=== PATIENT | female | born 1950 | race Caucasian/White ===

== ENCOUNTER 2016-11-18 08:01 | Outpatient (CLI) | payer BC ==
--- NOTE | 2016-11-18 09:05 | RAD ---
LUMBAR SPINE 3 VIEWS: Date: 11/18/16 HISTORY: Low back pain. FINDINGS: Degenerative changes are present with levoscoliosis of the lumbar spine. No fracture, subluxation, o r bony destruction is identified. IMPRESSION: Lumbar spondylosis with mild levoscoliosis. POS: RADHA
== END 2016-11-18 08:02 | disposition home or self-care (01) ==
LOC: RAD-FRANK 08:01
PROVIDERS: ATTEND Nurse Practitioner Family
DX: M54.5 Low back pain (principal); M47.816 Spondylosis without myelopathy or radiculopathy, lumbar region; M41.9 Scoliosis, unspecified
CPT/HCPCS: 72100

== ENCOUNTER 2017-02-10 13:00 | Outpatient (CLI) | payer MEDICARE ==
--- NOTE | 2017-02-10 13:39 | RAD ---
THREE VIEWS LUMBAR SPINE: Date: 02-10-17 Comparison: 11-18-16 History: Low back pain with pain radiating down the left lower extremity for six months, lumbar spina l stenosis. FINDINGS: Lateral neutral, flexion, and extension imaging is provided. There is no significant anterolisthesis or retrolisthesis noted. There is lower lumbar spine facet hy pertrophy, most prominent at L4-5. There is mild multilevel disc space narrowing and mild anterior os teophyte formation. No acute osseous abnormality. IMPRESSION: No anterolisthesis or retrolisthesis noted on neutral, flexion, or extension lateral views. POS: RADHA
== END 2017-02-10 13:01 | disposition home or self-care (01) ==
LOC: TBSIIMAG 13:00
PROVIDERS: ATTEND Neurological Surgery
DX: M48.061 Spinal stenosis, lumbar region without neurogenic claudication (principal)
CPT/HCPCS: 72100

== ENCOUNTER 2017-03-02 10:00 | Outpatient (CLI) | payer MEDICARE ==
[2017-03-02 11:00] LABS: PTT 27.7 SEC (22.9-36.1)
== END 2017-03-02 10:01 | disposition home or self-care (01) ==
LOC: LABBT 10:00
PROVIDERS: ATTEND Neurological Surgery
DX: Z01.812 Encounter for preprocedural laboratory examination (principal); M51.26 Other intervertebral disc displacement, lumbar region; M48.061 Spinal stenosis, lumbar region without neurogenic claudication
CPT/HCPCS: 85610; 85730

== ENCOUNTER 2017-03-07 05:28 | Day surgery (SDC) | payer MEDICARE ==
[2017-03-02 10:09] VITALS: BMI 29.1
--- NOTE | 2017-03-02 15:35 | HP ---
HISTORY OF PRESENT ILLNESS: Ms. Reeves is a 67-year-old female that presents with low back pain in th e left greater than the right and left-sided numbness, pain and tingling in the buttocks and left S1 dermatome. She has had this pain for about 6 months and has gotten worsen over short time. The pain is made worse with sitting and leaning to the left and walking. The pain is made somewhat better wi th analgesics. She has not had any NANNETTE injections of the lumbar spine and has not had PT. She denie s any bowel or bladder incontinence and has good strength in the lower extremities on exam. IMAGING: MRI on CD at [facility]. X-rays at [facility]. REVIEW OF SYSTEMS: Ten-point review of systems negative unless stated otherwise in the above HPI. PAST MEDICAL HISTORY: No medical history. PAST SURGICAL HISTORY: Tubal ligation at 32. HOSPITALIZATIONS: Childbirth at 31. FAMILY HISTORY: Father is , diagnosed with hypertension. Mother is , diagnosed with strokes. SOCIAL HISTORY: The patient is a nonsmoker. She is and has 1 child. MEDICATIONS: 1. Fluoxetine HCL 20 mg capsule 1 capsule in the morning orally once a day. 2. Lisinopril 40 mg tablet 1 tablet orally once a day. 3. Atenolol 25 mg tablet 1 tablet orally once a day. 4. Omeprazole 20 mg capsule delayed release 1 capsule orally once a day. 5. Ropinirole HCL 5 mg tablet 1 tablet orally 3 times a day. 5. Gabapentin 100 mg capsule 1 capsule orally 3 times a day. ALLERGIES: No known drug allergies. PHYSICAL EXAMINATION: HEENT: Head is normocephalic, atraumatic. Hearing intact. Moist mucous membranes. Trachea is midl ine. Eyes: Pupils are equal and reactive to light. Extraocular muscles are intact. Sclerae is whi te, nonicteric. PSYCHIATRIC: Normal mood and affect. CARDIOVASCULAR/CARDIOPULMONARY: No cyanosis or clubbing noted. Intact pedal pulses bilaterally. MUSCULOSKELETAL: Lower extremities, 5/5 strength in bilateral iliopsoas, quadriceps, hamstrings, rig ht tibialis anterior, extensor hallucis longus. Sensory deficits in the left S1 dermatome, nontender to palpation in the midline lumbar spine. RESPIRATORY: The patient has bilateral symmetric chest rise, appears to have no shortness of breath, clear sounds with no wheezing or crackles. NEUROLOGIC: Cranial nerves II through XII are grossly intact. Speech is fluent. She answers my que stions appropriately. She has normal gait and station. ASSESSMENT: Radiculopathy in the lumbar sacral region. PLAN: Dr. Marrero offered to decompress the lumbar spinal stenosis that is causing her leg pain an d the left leg weakness. We discussed the risks, benefits, and possible complications of surgery. S he is fully aware of the risk and is willing to proceed with the surgery. The surgery will be an L4- L5 laminectomy and a left L5-S1 microdiskectomy.
[2017-03-07] MEDS ORDERED: CEFAZOLIN/Water 2 GM/20 ML SYRINGE ONE (05:59)
[2017-03-07] MEDS ORDERED: Thrombin 5000 UNITS/5 ML VIAL ONE (06:18)
[2017-03-07] MEDS ORDERED: Sodium Chloride 0.9% 10 ML ONE (06:18)
[2017-03-07] MEDS ORDERED: Midazolam HCl 2 mg/2 ml Vial ONE (06:49)
[2017-03-07] MEDS ORDERED: Fentanyl 100 MCG/2 ML VIAL ONE ×3 (06:58→09:53)
[2017-03-07 07:09] LABS: Potassium 3.9 mmol/L (3.5-5.1)
[2017-03-07] MEDS ORDERED: Bupivacaine PF 0.5% 30 ML VIAL ONE (07:50)
[2017-03-07] MEDS ORDERED: Phenylephrine 10 MG/NS 250 ML 250 ML ONE (08:34)
[2017-03-07] MEDS ORDERED: HYDROcodone/Acetaminophen 5/325 mg Tablet ONE ×2 (11:09)
--- NOTE | 2017-03-07 11:16 | OP ---
DATE OF PROCEDURE: 03/07/2017 SURGEON: Melva Marrero M.D. VEGETABLE HANDLER: Tom Johnson PA-C. PREOPERATIVE INDICATION: Treat pain, prevent neurological deterioration. PREOPERATIVE DIAGNOSES: L4-5 lateral recess stenosis with neurogenic claudication, left L5-S1 interv ertebral disk herniation with S1 radiculopathy. POSTOPERATIVE DIAGNOSIS: L4-L5 lateral recess stenosis with neurogenic claudication, left L5-S1 inte rvertebral disk herniation with S1 radiculopathy. OPERATIVE PROCEDURE: Decompressive laminectomy, medial facetectomy, foraminotomy L4-5, left L5-S1 pa rtial hemilaminectomy, medial facetectomy, and microdiskectomy, operating microscope. PREOPERATIVE MEDICATIONS: Ancef 2 grams IV. DRAIN NUMBER: Zero. DRAIN TYPE: None. OPERATIVE DICTATION: The patient was brought to the operating room. General endotracheal anesthesia was induced. The patient was positioned prone on the operating table with her chest and hips suppor ponce by gel-filled chest rolls. A lateral fluoro radiograph was used to plan our incision. The lumba r skin was sterilely prepped and draped. We opened with a 10 blade knife and controlled bleeding wit h bipolar and monopolar cautery. We used monopolar cautery to dissect through the subcutaneous tissu es to the thoracodorsal fascia. We incised the fascia in the midline and reflected the paraspinal mu scles off the spinous process and lamina of L4, L5, and the top of the sacrum. We placed a self-lurdes ining retractor and a lateral fluoro radiograph was used to confirm the levels upon which we were ope rating. With an Adson rongeur, we removed the spinous process of L4 and the superior portion of L5. We thinned the lamina of L4 and the left side of the lamina at L5. Using a Kerrison rongeur, we fas hioned a laminectomy at L4 and the top of L5 and a partial hemilaminectomy at L5-S1. The operative m icroscope was brought into the field. Under microscopic magnification and using microsurgical techniques, we removed the yellow ligament in a piecemeal fashion at L4-5, we undermined the lateral recesses and remove ventral osteophytes from the facet joints and removed yellow ligament as well. We identified the traversing and exiting L5 ne rve roots. We performed foraminotomies over these nerve roots until a ball probe could pass through the lateral recess and out the foramen without impingement. We turned our microscopes attention to L 5-S1 on the left. Here we completed a partial hemilaminectomy, medial facetectomy with Kerrisons. W e removed the yellow ligament in piecemeal fashion. The L5 nerve root was severely stretched over a calcified disk protrusion. We gently mobilized the nerve root medially and incised the lateral aspec t of the disk, removing disk contents. We still could not free the nerve and therefore we worked in the axilla of the nerve root and removed disk material there as well. That maneuver was quite fruitf ul and then we could mobilize the nerve root medially. We controlled bleeding in the ventral epidura l space with gentle bipolar cautery. We removed more disk fragments until the nerve root was no long er under any stretch whatsoever. We irrigated copiously with bacitracin irrigation. We infused loca l anesthetic in the paraspinal muscles. We closed the wound in anatomic layers. We applied a steril e dressing. This was a clean case and no contamination.
[2017-03-07] MEDS ORDERED: Lidocaine 1% PF 5 ML VIAL ONE (12:26)
[2017-03-07] MEDS ORDERED: Ondansetron HCl/PF 4 MG/2 ML Vial ONE (12:26)
[2017-03-07] MEDS ORDERED: PHENYLEPHRINE-NS 100 MCG/ML 10 ML SYRINGE ONE (12:26)
[2017-03-07] MEDS ORDERED: Propofol 200 MG/20 ML VIAL ONE (12:26)
[2017-03-07] MEDS ORDERED: Glycopyrrolate 0.2 MG/ML 5 ML SYRINGE ONE (12:26)
== END 2017-03-07 12:34 | disposition home or self-care (01) ==
LOC: SDC 05:28
PROVIDERS: ATTEND Neurological Surgery
PROC: 01NB0ZZ Release Lumbar Nerve, Open Approach (ICD-10-PCS; principal; 2017-03-07)
PROC: 0ST20ZZ Resection of Lumbar Vertebral Disc, Open Approach (ICD-10-PCS; 2017-03-07)
DX: M48.062 Spinal stenosis, lumbar region with neurogenic claudication (principal); M51.17 Intervertebral disc disorders with radiculopathy, lumbosacral region; M25.78 Osteophyte, vertebrae; Z79.51 Long term (current) use of inhaled steroids; Z79.899 Other long term (current) drug therapy; Z98.51 Tubal ligation status
CPT/HCPCS: 36415; 76001; 84132; 96374; A4216; J2001; J2250; J2405; J2704; J3010; J3370; J3490; S0020

== ENCOUNTER 2017-10-24 12:43 | Outpatient (CLI) | payer MEDICARE ==
--- NOTE | 2017-10-24 17:03 | ULT ---
BILATERAL LOWER EXTREMITY VENOUS DOPPLER WITH SPECTRAL ANALYSIS AND COLOR FLOW EVALUATION: Date: 10/24/17 HISTORY: Bilateral lower extremity pain. TECHNIQUE: Lee scale, color flow, Doppler evaluation, and spectral analysis of the bilateral lower extremity ve nous structures is performed with 2D imaging. The bilateral lower extremity common femoral, superfici al femoral, popliteal, posterior tibial, most proximal greater saphenous, and profunda femoral veins are imaged. FINDINGS: There is normal lumen compressibility, flow, and augmentation in the visualized deep venous structure s of the bilateral lower extremities. IMPRESSION: No evidence of a deep venous thrombosis involving the visualized deep venous structures of bilateral lower extremities. POS: VERO
--- NOTE | 2017-10-28 09:50 | ULT ---
ARTERIAL ULTRASOUND: Date: 10/24/17 Bilateral lower extremity arterial ultrasound was performed. On the right, common femoral and popliteal artery waveforms are triphasic with good peak area under t he waveform. Dorsalis pedis and posterior tibial artery waveforms are triphasic with some diminution of the peak wave. Ankle brachial index is 1.29 on the right. On the left, femoral, popliteal, dorsalis pedis, and posterior tibial waveforms are triphasic with go od peak area under the waveform. Ankle brachial index is 1.31. ASSESSMENT: Mild tibial disease on the right with normal ankle brachial indices bilaterally.
== END 2017-10-24 12:44 | disposition home or self-care (01) ==
LOC: ULT 12:43
PROVIDERS: ATTEND Nurse Practitioner Family
DX: M79.604 Pain in right leg (principal); M79.605 Pain in left leg; I10 Essential (primary) hypertension; I73.9 Peripheral vascular disease, unspecified; R73.9 Hyperglycemia, unspecified; R19.7 Diarrhea, unspecified; K21.0 Gastro-esophageal reflux disease with esophagitis; G25.81 Restless legs syndrome; M19.90 Unspecified osteoarthritis, unspecified site; F33.1 Major depressive disorder, recurrent, moderate; M47.896 Other spondylosis, lumbar region; Z79.899 Other long term (current) drug therapy
CPT/HCPCS: 36415; 80053; 83036; 84443; 85025; 87045; 87046; 87177; 87324; 87328; 87329; 87449; 87899; 93922; 93970

== ENCOUNTER 2017-10-28 14:35 | Inpatient (IN) | payer MEDICARE ==
[2017-10-28 15:47] LABS: #Basophils 0.1 thou/uL (0.0-0.2); #Eosinphils 0.1 thou/uL (0.0-0.7); #Lymphocytes 2.9 thou/uL (1.20-3.40); #Monocytes 0.4 thou/uL (0.11-0.59); #Neutrophils 2.9 thou/uL (1.40-6.50); %Basophils 0.8 % (0.0-1.0); %Eosinophils 1.9 % (0.0-10.0); %Monocytes 6.9 % (0.0-10.0); %Neutrophils 45.4 % (42.0-75.0); Hemoglobin 9.7 g/dL (12.0-16.0); Mean Corpuscular HGB CONC 31.1 g/dL (32.0-36.0); Mean Corpuscular Hemoglobin 26.4 pg (27.0-31.0); Mean Corpuscular Volume 84.9 fL (78.0-98.0); Mean Platelet Volume 7.3 fL (7.4-10.4); Platelet Count 576 thou/uL (130-400); RBC Distribution Width 12.7 % (11.5-14.5); Red Blood Cell (RBC) Count 3.69 mill/uL (4.20-5.40); White Blood Cell (WBC) Count 6.4 thou/uL (4.8-10.8)
[2017-10-28 16:13] LABS: ALT (SGPT) 16 U/L (8-55); AST (SGOT) 17 U/L (5-34); Albumin 3.7 g/dL (3.4-4.8); Alkaline Phosphatase 71 U/L (40-150); Anion Gap 14 mmol/L (10-20); BUN (Urea Nitrogen) 43 mg/dL (9.8-20.1); Bilirubin, Total 0.2 mg/dL (0.2-1.2); Calc. Creatinine Clearance 0 mL/min (70-130); Calcium 8.9 mg/dL (7.8-10.44); Carbon Dioxide 20 mmol/L (23-31); Chloride 105 mmol/L (98-107); Estimated GFR-MDRD 21; Globulin 3.1 g/dL (2.4-3.5); Glucose 96 mg/dL (80-115); Potassium 4.2 mmol/L (3.5-5.1); Protein, Total 6.8 g/dL (6.0-8.3); Sodium 135 mmol/L (136-145)
[2017-10-28 17:19] LABS: Bilirubin Negative (Negative); Blood, Urine Negative (Negative); Clarity CLEAR (Clear); Glucose, Urine (Dipstick) Negative (Negative); Leukocyte Negative (Negative); Nitrite Negative (Negative); Protein, Urine (Dipstick) Negative (Neg-Trace); Specific Gravity, Urine 1.019 (1.002-1.036); Urobilinogen 0.2 mg/dL (0.2-1.0)
[2017-10-28] MEDS ORDERED: Dicyclomine 20 MG TAB ONE (19:44)
--- NOTE | 2017-10-28 20:24 | CT ---
ABDOMEN CT WITHOUT CONTRAST PELVIC CT WITHOUT CONTRAST 10/28/17 HISTORY: Blood in stool. Diarrhea. Symptoms x2 weeks. COMPARISON: None. TECHNIQUE: Abdomen and pelvic CT are performed without IV or oral contrast. Coronal reformatted images are submi tted for interpretation. FINDINGS: ABDOMEN CT: Dependent atelectatic changes in the lung bases. Heart size is within normal limits. No pericardial e ffusion. There is a moderate hiatal hernia. Limited evaluation of the solid organs by the lack of IV contrast. Grossly, the liver, spleen, pancre as, and adrenal glands are unremarkable. Gallbladder is also unremarkable. No gastrohepatic, retrocrural or periportal lymphadenopathy. There are scattered nonspecific mesenteric lymph nodes. No mesenteric mass, free air or free fluid. Limited evaluation of the alimentary canal by the lack of oral contrast. Grossly unremarkable gastric mucosa and small bowel loops. Ileocecal junction is normal. Normal caliber appendix. There are scatt ered fecal material in a nondistended, nondilated colon. The visualized colonic mucosa is unremarkabl e. Scattered diverticula. No evidence of diverticulitis. Bilaterally, no evidence of obstructive uropathy. Hypodensity in the upper pole of the right kidney t oo small to adequately characterize. Isodense exophytic lesion of the right kidney is also too small to characterize. PELVIC CT: The uterus and adnexal structures are unremarkable. No pelvic mass, lymphadenopathy, free air or free fluid. No lytic or blastic lesions in the osseous structures. IMPRESSION: Limited evaluation due to technique. Given patient's history, further evaluation with colonoscopy is recommended. POS: PPP
[2017-10-28 22:12] VITALS: BMI 31.1
[2017-10-28] MEDS ORDERED: Ondansetron HCl/PF 4 MG/2 ML Vial IVP PRN (22:23)
[2017-10-28] MEDS ORDERED: Acetaminophen 650 MG Suppository PR PRN (22:23)
[2017-10-28] MEDS: Sodium Chloride 0.9% 1,000 ML IV SCH (23:03)
[2017-10-28] MEDS ORDERED: rOPINIRole HCl 2 MG TAB PO SCH (23:30)
[2017-10-29 04:37] LABS: ALT (SGPT) 11 U/L (8-55); AST (SGOT) 13 U/L (5-34); Albumin 3.1 g/dL (3.4-4.8); Alkaline Phosphatase 54 U/L (40-150); Anion Gap 11 mmol/L (10-20); BUN (Urea Nitrogen) 36 mg/dL (9.8-20.1); BUN/Creatinine Ratio 20.57; Bilirubin, Total 0.2 mg/dL (0.2-1.2); Calc. Creatinine Clearance 43 mL/min (70-130); Calcium 8.6 mg/dL (7.8-10.44); Carbon Dioxide 24 mmol/L (23-31); Chloride 109 mmol/L (98-107); Estimated GFR-MDRD 29; Globulin 2.4 g/dL (2.4-3.5); Glucose 108 mg/dL (80-115); Protein, Total 5.5 g/dL (6.0-8.3); Sodium 140 mmol/L (136-145)
[2017-10-29 04:53] LABS: #Eosinphils 0.1 thou/uL (0.0-0.7); #Lymphocytes 2.6 thou/uL (1.20-3.40); #Monocytes 0.4 thou/uL (0.11-0.59); #Neutrophils 2.7 thou/uL (1.40-6.50); %Basophils 0.4 % (0.0-1.0); %Eosinophils 2.1 % (0.0-10.0); %Lymphocytes 45.1 % (21.0-51.0); %Neutrophils 45.4 % (42.0-75.0); Hemoglobin 8.1 g/dL (12.0-16.0); Mean Corpuscular HGB CONC 30.5 g/dL (32.0-36.0); Mean Corpuscular Hemoglobin 25.8 pg (27.0-31.0); Mean Corpuscular Volume 84.8 fL (78.0-98.0); Mean Platelet Volume 7.6 fL (7.4-10.4); Platelet Count 431 thou/uL (130-400); RBC Distribution Width 12.7 % (11.5-14.5); Red Blood Cell (RBC) Count 3.12 mill/uL (4.20-5.40); White Blood Cell (WBC) Count 5.9 thou/uL (4.8-10.8)
[2017-10-29] MEDS ORDERED: Mag-Al 1200 mg/1200 mg/30 ML UDCUP PO PRN (06:40)
[2017-10-29] MEDS ORDERED: Loperamide HCl 2 MG CAP PO PRN (06:40)
[2017-10-29] MEDS ORDERED: HYDROcodone/Acetaminophen 5/325 mg Tablet PO PRN (06:40)
[2017-10-29] MEDS ORDERED: hydrALAZINE 20 MG/ML VIAL SLOW IVP PRN (06:40)
[2017-10-29] MEDS ORDERED: Milk Of Magnesia 30 ML UDCUP PO PRN (06:40)
[2017-10-29] MEDS ORDERED: Eucerin (Mineral Oil/Petrolatum,White) 30 gm Jar TOP PRN (06:40)
[2017-10-29] MEDS ORDERED: Loratadine 10 MG TAB PO PRN (06:40)
[2017-10-29] MEDS ORDERED: Ondansetron ODT 4 MG TAB PO PRN (06:40)
[2017-10-29] MEDS ORDERED: Chloraseptic Spray 180 ml Bottle PO PRN (06:40)
[2017-10-29] MEDS ORDERED: Sodium Chloride 0.65% Nasal 44 ML BOT EA NARE PRN (06:40)
[2017-10-29] MEDS ORDERED: Senokot 8.6 MG TAB PO PRN (06:40)
[2017-10-29] MEDS ORDERED: Artificial Tears 18 DROP/0.9 ML EA EYE PRN (06:40)
[2017-10-29] MEDS ORDERED: Diabetic Tussin 200 MG/10 ML UDCUP PO PRN (06:40)
[2017-10-29] MEDS ORDERED: Zolpidem Tartrate 5 MG TAB PO PRN (06:40)
--- NOTE | 2017-10-29 07:06 | HP ---
CHIEF COMPLAINT: Diarrhea and bloody stool. HISTORY OF PRESENT ILLNESS: This is a 67-year-old female with past medical history of hypertension, presenting with 2 weeks of diarrhea and 2 days of bloody bowel movement. She has had diarrhea about 3 to 4 times a day since the past 2 weeks. She was recently on antibiotics for bladder infection abo ut 3 weeks ago and after completing the dose of antibiotics, she started having diarrhea which has be en ongoing. The patient also states that she now saw some blood in her stool. She did not see it to tally blood, but she sees streaks of blood every time that she uses the bathroom. The patient also r eports vomiting, nonbloody, nonbilious vomitus night prior to the day of admission. The patient stat es that she has mild discomfort in her abdomen about 3/10 in pain scale. The patient has also lost 5 pounds recently. The patient knows that she does not have any shortness of breath, cough, fever, ch ills, but endorses diarrhea with mild discomfort in the abdomen with vomiting. Of note, the patient states that she has had colonoscopy done about 4 years ago at [facility]. She stated that there was no abnormality with her colonoscopy. Also, the patient says that this is her first time actuall y having this type of diarrhea and abdominal discomfort. The patient states that she took Imodium, P epto-Bismol and none of this has helped with this incident of diarrhea. REVIEW OF SYSTEMS: Positive for diarrhea, bloody stool, vomiting; otherwise, documented in the HPI. All other systems were reviewed and are negative. PAST MEDICAL HISTORY: Hypertension. FAMILY HISTORY: Reviewed and noncontributory to this visit. PAST SURGICAL HISTORY: Tubal ligation. PSYCHIATRIC HISTORY: Includes depression. SOCIAL HISTORY: The patient denies ethanol use, denies any illicit drug use, and denies any smoking history. ALLERGIES: No known drug allergies. CURRENT MEDICATIONS: The patient takes, 1. Lisinopril 10 mg. 2. Atenolol/chlorthalidone 50 mg/25 mg. 3. Aspirin 81 mg. 4. Ropinirole daily. 5. Magnesium 250 mg. PHYSICAL EXAMINATION: VITAL SIGNS: Blood pressure is 97/63, pulse 62, respiratory rate of 18, temperature of 98, O2 satura tion is 96 on room air. GENERAL APPEARANCE: The patient is lying comfortably in bed, does not appear to be in any acute dist ress. The patient is speaking full sentences. The patient appears her stated age, obese. HEENT: Normocephalic, atraumatic. Pupils are equally round and reactive to light. Extraocular move ments are intact. No scleral icterus. Mucous membranes are moist. NECK: Supple. Trachea midline. No JVD. LUNGS: Clear to auscultation bilaterally. No wheezing, no rales, no rhonchi appreciated. CARDIOVASCULAR: S1, S2, regular rate and rhythm. Positive S1, S2. Regular rate and rhythm. No mur murs, no rubs, no gallops. ABDOMEN: Mild tenderness with deep palpation in the left lower quadrant and right lower quadrant tasha aterally. Otherwise, no pulsatile masses. No peritoneal signs. The patient had positive bowel soun ds. EXTREMITES: Upper and lower extremities within normal limits. The patient has good 5/5 upper extrem ity strengthening and 5/5 lower extremity strengthening with good pulses. NEUROLOGIC: Cranial nerves II through XII grossly intact. No neurological deficits noted. SKIN: Warm, dry, and intact. PSYCHIATRIC: Normal affect, alert, and oriented x3. ED COURSE: The patient received a liter of fluid of normal saline. LABORATORY DATA: WBC is 6.4, hemoglobin is 9.7, hematocrit is 31.4, platelet is 576. Sodium 135, po tassium 4.2, chloride 105, carbon dioxide 20, anion gap of 14, BUN is 43, creatinine is 2.28. AST 17 , ALT 16, alkaline phosphatase is 71. Urinalysis is negative. IMAGING DATA: CT of the abdomen and pelvis showed limited evaluation due to technique. Further eval uation with colonoscopy is being recommended by radiologist. ASSESSMENT AND PLAN: 1. This is a 67-year-old female who presented with bloody stools and diarrhea, currently be sent for C. diff and stool cultures. We have consulted GI. We made the patient n.p.o. The patient will yuri efit from possible colonoscopy at this time, but however, we will leave the plan to GI to make the re commendations. We will continue to follow with the patient. At this point due to the patient's hist ory of bleeding, we will hold aspirin and we will hold any anticoagulation at this time. We will barb e patient n.p.o. We will transfuse the patient when hemoglobin is less than 7. 2. Acute on chronic kidney disease. At this time, the patient's creatinine is 2.28 with a BUN of 45 , likely due to dehydration or possible cause of bleed, since BUN is 45; however, the patient is not vomiting any bloody vomitus. Therefore, it is highly likely that this is due to dehydration. Theref ore, at this point, we will continue the patient on normal saline. I will follow up on morning labs. 3. History of hypertension. Currently, the patient's blood pressure is controlled. We will continu e to monitor the patient's blood pressure and we will give the patient blood pressure medication as n eeded. 4. Deep venous thrombosis and gastrointestinal prophylaxis, we will do sequential compression device and Protonix. This case has been dictated by Dr. Juni Arellano on patient, Lala Taylor.
[2017-10-29] MEDS: Sodium Chloride 0.9% 1,000 ML IV SCH ×2 (08:55→19:37)
[2017-10-29] MEDS: Fluticasone Propionate Nasal Spray 16 gm Bottle NASAL SCH (08:57)
[2017-10-29] MEDS: Pantoprazole 40 MG VIAL IVP SCH (08:57)
[2017-10-29] MEDS: FLUoxetine HCl 20 MG CAP PO SCH (08:57)
--- NOTE | 2017-10-29 10:04 | PDOC.PN ---
- Subjective Encounter Start Date: 10/29/17 Encounter Start Time: 08:20 -: old records requested/rev pt has daily 3-4 diarrhoea for 1-2 week, no fever, history obtained from her - Objective Resuscitation Status: Resuscitation Status FULL:Full Resuscitation MAR Reviewed: Yes Vital Signs & Weight: Vital Signs (12 hours) Temp Pulse Resp BP BP Pulse Ox 10/29/17 08:10 97.6 F 60 18 104/65 98 10/29/17 07:35 97.9 F 67 18 90/51 L 95 10/29/17 04:11 98.8 F 67 18 100/49 L 98 10/28/17 22:21 100 Weight Weight 186 lb 12.8 oz Result Diagrams: 10/29/17 04:03 10/29/17 04:03 Radiology Reviewed by me: Yes (CT abdomen noted and reviewed) Phys Exam - Physical Examination Constitutional: NAD HEENT: PERRLA, moist MMs, sclera anicteric Neck: no JVD, supple Respiratory: no wheezing, no rales, no rhonchi Cardiovascular: RRR, no significant murmur, no rub Gastrointestinal: soft, no distention, positive bowel sounds lower abdominal discomfort Musculoskeletal: no edema, pulses present Neurological: non-focal, normal sensation, moves all 4 limbs Psychiatric: normal affect, A&O x 3 Skin: no rash, normal turgor Dx/Plan (1) Acute kidney failure Status: Acute (2) Anemia due to acute blood loss Code(s): D62 - ACUTE POSTHEMORRHAGIC ANEMIA Status: Acute (3) Diarrhea Code(s): R19.7 - DIARRHEA, UNSPECIFIED Status: Acute (4) GI bleed Code(s): K92.2 - GASTROINTESTINAL HEMORRHAGE, UNSPECIFIED Status: Acute (5) Anxiety and depression Code(s): F41.9 - ANXIETY DISORDER, UNSPECIFIED; F32.9 - MAJOR DEPRESSIVE DISORDER, SINGLE EPISODE, UNSPECIFIED Status: Chronic (6) GERD (gastroesophageal reflux disease) Code(s): K21.9 - GASTRO-ESOPHAGEAL REFLUX DISEASE WITHOUT ESOPHAGITIS Status: Chronic (7) Hypertension Code(s): I10 - ESSENTIAL (PRIMARY) HYPERTENSION Status: Chronic (8) Obesity (BMI 30.0-34.9) Code(s): E66.9 - OBESITY, UNSPECIFIED Status: Chronic - Plan cont current plan of care, plan discussed w/ family * medication reviewed as below * symptomatic treatment * GI consulted * she will need colonoscopy and biopsy to rule out microscopic colitis * stool for infection is negative * discussed with family * change to inpt * continue IVF * monitor H & H. Review of Systems - Review of Systems Constitutional: negative: fever, chills, sweats, weakness, malaise, other Eyes: negative: Pain, Vision Change, Conjunctivae Inflammation, Eyelid Inflammation, Redness, Other ENT: negative: Ear Pain, Ear Discharge, Nose Pain, Nose Discharge, Nose Congestion, Mouth Pain, Mouth Swelling, Throat Pain, Throat Swelling, Other Respiratory: negative: Cough, Dry, Shortness of Breath, Hemoptysis, SOB with Excertion, Pleuritic Pain, Sputum, Wheezing Cardiovascular: negative: chest pain, palpitations, orthopnea, paroxysmal nocturnal dyspnea, edema, light headedness, other Gastrointestinal: Abdominal Pain, Diarrhea, Hematochezia. negative: Nausea, Vomiting, Constipation, Melena, Other Genitourinary: negative: Dysuria, Frequency, Incontinence, Hematuria, Retention , Other Musculoskeletal: negative: Neck Pain, Shoulder Pain, Arm Pain, Back Pain, Hand Pain, Leg Pain, Foot Pain, Other Skin: negative: Rash, Lesions, Chuy, Bruising, Other - Medications/Allergies Allergies/Adverse Reactions: Allergies Allergy/AdvReac Type Severity Reaction Status Date / Time No Known Allergies Allergy Verified 03/02/17 10:10 Medications: Current Medications Acetaminophen (Tylenol) 650 mg PO Q4H PRN PRN Reason: Headache/Fever or Pain Acetaminophen (Tylenol) 650 mg [place] Q4H PRN PRN Reason: Headache/Fever or Pain Hydrocodone Bitart/Acetaminophen ([place] 5/325) 1 tab PO Q4H PRN PRN Reason: Moderate Pain (4-6) Al Hydroxide/Mg Hydroxide (Maalox) 15 ml PO Q4H PRN PRN Reason: Heartburn or Indigestion Artificial Tears (Tears Naturale) 0 drop EA EYE PRN PRN PRN Reason: Dry Eyes Fluoxetine HCl (Prozac) 20 mg PO DAILY [facility] Last Admin: 10/29/17 08:57 Dose: 20 mg Fluticasone Propionate (Flonase Nasal [place]) 0 gm NASAL DAILY [facility] Last Admin: 10/29/17 08:57 Dose: 1 spr Guaifenesin (Robitussin Sf) 200 mg PO Q4H PRN PRN Reason: Cough Hydralazine HCl (Apresoline) 10 mg SLOW IVP Q4H PRN PRN Reason: Systolic BP > 180 Sodium Chloride (Normal Saline 0.9%) 1,000 mls @ 100 mls/hr IV .Q10H [facility] Last Admin: 10/29/17 08:55 Dose: 1,000 mls Loperamide HCl (Imodium) 2 mg PO PRN PRN PRN Reason: Diarrhea/Loose Stools Loratadine (Claritin) 10 mg PO DAILYPRN PRN PRN Reason: Sinus Symptoms Magnesium Hydroxide (Milk Of Magnesium) 30 ml PO DAILYPRN PRN PRN Reason: Constipation Mineral Oil/White Petrolatum (Eucerin Cream) 0 gm TOP BIDPRN PRN PRN Reason: Dry Skin Ondansetron HCl (Zofran) 4 mg IVP Q6H PRN PRN Reason: Nausea/Vomiting Ondansetron HCl (Zofran Odt) 4 mg PO Q6H PRN PRN Reason: Nausea/Vomiting Pantoprazole Sodium (Protonix) 40 mg IVP DAILY [facility] Last Admin: 10/29/17 08:57 Dose: 40 mg Phenol (Chloraseptic [place] 180 Ml Bot) 0 ml PO PRN PRN PRN Reason: Sore Throat Ropinirole HCl (Requip) 4 mg PO HS [facility] Senna (Senokot) 2 tab PO HSPRN PRN PRN Reason: Constipation Sodium Chloride (Flush - Normal Saline) 10 ml IVF PRN PRN PRN Reason: Saline Flush Sodium Chloride (Flush - Normal Saline) 10 ml IVF Q12HR [facility] Last Admin: 10/29/17 08:57 Dose: 10 ml Sodium Chloride (Flush - Normal Saline) 10 ml IVF PRN PRN PRN Reason: Saline Flush Sodium Chloride ([place] Nasal [place] 0.65%) 0 ml EA NARE QIDPRN PRN PRN Reason: Nasal Congestion Zolpidem Tartrate (Ambien) 5 mg PO HSPRN PRN PRN Reason: Insomnia
--- NOTE | 2017-10-29 12:13 | CON ---
DATE OF CONSULTATION: 10/29/2017 CHIEF COMPLAINT: Diarrhea. HISTORY OF PRESENT ILLNESS: Ms. Reeves is a 67-year-old woman, who presented to the emergency room wi th diarrhea and blood in the stool yesterday. She, at baseline, has normal once daily brown formed b owel movements up until around 3 weeks ago, she developed a urinary tract infection and took an antib iotic, possibly Bactrim for 10 days. While she was on the antibiotics, she developed diarrhea and brumfield s been having 5-7 liquidy brown stools per day. She has tried some Imodium and Pepto-Bismol, for dylon t which has only helped minimally. She was given some either hyoscyamine or Levsin, which really did not help much. She, yesterday, had one liquidy bloody stool while she was trying to obtain a stool sample. She has had no other rectal bleeding, other than that episode. She has had around 7 episode s again of diarrhea since she has been in the hospital and she reports these have been more of a dark brown. She has had some nausea and has vomited a few times intermittently over the last couple of w eeks. She turned in stool samples as an outpatient on 10/24/2017, and she was negative for C. diffic ile and ova and parasites and Campylobacter at that time. She did have stool culture, which was unre markable. She did repeat stool samples yesterday and again the C. difficile is negative. Occult blo od was positive. The Campylobacter and Shiga toxins were negative. She has only had some cramping l ower abdominal pain just before bowel movements, but has not had any persistent abdominal pain, other connor. She has had anemia with a hemoglobin of 10.2 back on 10/24/2017 as an outpatient and this is d rifted down to 8.1 today. She has had again only one episode of overt bleeding. She has also had re nal insufficiency with a creatinine of 2 back on 10/24/2017 as an outpatient. Her creatinine is 1.75 today after hydration. PAST MEDICAL HISTORY: Hypertension; has had restless legs; chronic leg pain, for which she had some arterial and venous studies performed for her lower extremity vasculature. She did take amitriptylin e once, which she said made her crazy and she only took one tablet. PAST SURGICAL HISTORY: Tubal ligation. FAMILY HISTORY: Negative for GI malignancy. SOCIAL HISTORY: No alcohol, tobacco, or drugs. ALLERGIES: No known drug allergies. MEDICATIONS PRIOR TO ADMISSION: Lisinopril and atenolol with hydrochlorothiazide, takes aspirin 81 m g daily, magnesium, ropinirole was on her home medication list. She also takes fluoxetine. She has been on this for a long time. REVIEW OF SYSTEMS: Negative x10 systems reviewed except as stated in the history of present illness. PHYSICAL EXAMINATION: VITAL SIGNS: Temperature 97.6, pulse 60, blood pressure 104/65. GENERAL: She is in no acute distress, alert and oriented x3. HEENT: Eyes have no scleral icterus. Oropharynx is clear, without lesions. NECK: No cervical or supraclavicular lymphadenopathy. LUNGS: Clear to auscultation bilaterally. HEART: Regular rate and rhythm without murmur. ABDOMEN: Soft, nontender, nondistended. Bowel sounds are present. EXTREMITIES: No lower extremity edema. LABORATORY DATA: White blood cell count 5.9, hemoglobin 8.1, platelets 431. INR 1.0 back in 02/2017 . Her creatinine is 1.75, bilirubin 0.2, AST 13, ALT 11, alkaline phosphatase 54. IMPRESSION: 1. Diarrhea for the last 2-3 weeks after taking an antibiotic, most likely Bactrim, based on her mem ory for a urinary tract infection. Clostridium difficile is negative and other stool studies have be en negative. Given that the diarrhea has gone on for up to 3 weeks now and has continued and now she has developed bloody diarrhea yesterday, we will follow through with endoscopy to evaluate this furt her. The bleeding, however, sounds like it has not really been a significant volume, as she only had one episode yesterday and she has had a brown liquidy stool since then. She could have had ischemic colitis. However, she does not have abdominal pain or tenderness to suggest this. She has been on multiple blood pressure medications and may have been dehydrated from her diarrhea, which certainly c ould precipitate ischemic colitis. She had a noncontrast CT without oral or IV contrast that really did not show much. Stool studies have been negative. She does report her last colonoscopy was 5 or 6 years ago at [facility]. She had another colonoscopy prior to that. She believes polyps were removed at some point, but does not recall what the more recent one. 2. Anemia. She has a normal MCV at 84.8. Certainly, overt bleeding she has described is not really consistent with a significant anemia of acute blood loss to this degree. I will send iron studies a nd B12 and folic acid. We will plan upper endoscopy at the same time as the colonoscopy to further e valuate the anemia given the low normal MCV and overt blood loss and diarrhea. 3. Elevated creatinine. It is unclear if this is more of an acute or chronic kidney disease. RECOMMENDATIONS: 1. Check iron studies, B12, folate. 2. EGD and colonoscopy tomorrow.
[2017-10-29 12:29] LABS: Folate (Folic Acid) 9.4 ng/mL (7.0-31.4)
[2017-10-29] MEDS ORDERED: GoLYTELY 4,000 ml Bottle PO SCH (15:00)
[2017-10-29] MEDS: Acetaminophen 325 MG TAB PO PRN (19:46)
[2017-10-29] MEDS: rOPINIRole HCl 2 MG TAB PO SCH (19:47)
[2017-10-29] MEDS ORDERED: rOPINIRole HCl 2 MG TAB PO SCH (21:00)
[2017-10-30 05:03] LABS: Iron 15 ug/dL (50-170); Iron Binding Capacity, Total 286 mcg/dL (265-497)
[2017-10-30] MEDS ORDERED: Atenolol 25 MG TAB PO SCH (05:30)
[2017-10-30] MEDS: Sodium Chloride 0.9% 1,000 ML IV SCH (05:41)
[2017-10-30] MEDS: FLUoxetine HCl 20 MG CAP PO SCH (09:37)
[2017-10-30] MEDS: Fluticasone Propionate Nasal Spray 16 gm Bottle NASAL SCH (09:37)
[2017-10-30] MEDS: Pantoprazole 40 MG VIAL IVP SCH (09:37)
--- NOTE | 2017-10-30 11:17 | PDOC.PN ---
- Subjective Encounter Start Date: 10/30/17 Encounter Start Time: 09:00 Patient seen and examined. No new complaints. No overnight events - Objective Resuscitation Status: Resuscitation Status FULL:Full Resuscitation MAR Reviewed: Yes Vital Signs & Weight: Vital Signs (12 hours) Temp Pulse Resp BP Pulse Ox 10/30/17 09:35 97.5 F L 63 16 126/78 97 10/30/17 07:30 98 10/30/17 03:35 97.7 F 74 16 122/74 95 Weight Weight 186 lb 12.8 oz I&O: 10/29/17 10/30/17 10/31/17 06:59 06:59 06:59 Intake Total 4400 Balance 4400 Result Diagrams: 10/29/17 04:03 10/29/17 04:03 Phys Exam - Physical Examination Constitutional: NAD HEENT: PERRLA, moist MMs, sclera anicteric Neck: no JVD, supple Respiratory: no wheezing, no rales, no rhonchi Cardiovascular: RRR, no significant murmur, no rub Gastrointestinal: soft, non-tender, no distention, positive bowel sounds Musculoskeletal: no edema, pulses present Neurological: non-focal, normal sensation, moves all 4 limbs Psychiatric: normal affect, A&O x 3 Skin: no rash, normal turgor Dx/Plan (1) Acute kidney failure Status: Acute (2) Anemia due to acute blood loss Code(s): D62 - ACUTE POSTHEMORRHAGIC ANEMIA Status: Acute (3) Diarrhea Code(s): R19.7 - DIARRHEA, UNSPECIFIED Status: Acute (4) GI bleed Code(s): K92.2 - GASTROINTESTINAL HEMORRHAGE, UNSPECIFIED Status: Acute (5) Anxiety and depression Code(s): F41.9 - ANXIETY DISORDER, UNSPECIFIED; F32.9 - MAJOR DEPRESSIVE DISORDER, SINGLE EPISODE, UNSPECIFIED Status: Chronic (6) GERD (gastroesophageal reflux disease) Code(s): K21.9 - GASTRO-ESOPHAGEAL REFLUX DISEASE WITHOUT ESOPHAGITIS Status: Chronic (7) Hypertension Code(s): I10 - ESSENTIAL (PRIMARY) HYPERTENSION Status: Chronic (8) Obesity (BMI 30.0-34.9) Code(s): E66.9 - OBESITY, UNSPECIFIED Status: Chronic - Plan cont current plan of care, plan discussed w/ family * DC IVF * start diet * s/p EGD and colonoscopy today * follow on pathology report * start ferrous sulfate * give one dose of venofer today * repeat labs tomorrow * expecting discharge tomorrow * medication reviewed as below * symptomatic treatment. Review of Systems - Review of Systems ENT: negative: Ear Pain, Ear Discharge, Nose Pain, Nose Discharge, Nose Congestion, Mouth Pain, Mouth Swelling, Throat Pain, Throat Swelling, Other Respiratory: negative: Cough, Dry, Shortness of Breath, Hemoptysis, SOB with Excertion, Pleuritic Pain, Sputum, Wheezing Cardiovascular: negative: chest pain, palpitations, orthopnea, paroxysmal nocturnal dyspnea, edema, light headedness, other Gastrointestinal: negative: Nausea, Vomiting, Abdominal Pain, Diarrhea, Constipation, Melena, Hematochezia, Other Genitourinary: negative: Dysuria, Frequency, Incontinence, Hematuria, Retention , Other Musculoskeletal: negative: Neck Pain, Shoulder Pain, Arm Pain, Back Pain, Hand Pain, Leg Pain, Foot Pain, Other Skin: negative: Rash, Lesions, Chuy, Bruising, Other - Medications/Allergies Allergies/Adverse Reactions: Allergies Allergy/AdvReac Type Severity Reaction Status Date / Time No Known Allergies Allergy Verified 03/02/17 10:10 Medications: Current Medications Acetaminophen (Tylenol) 650 mg PO Q4H PRN PRN Reason: Headache/Fever or Pain Last Admin: 10/29/17 19:46 Dose: 650 mg Acetaminophen (Tylenol) 650 mg [place] Q4H PRN PRN Reason: Headache/Fever or Pain Hydrocodone Bitart/Acetaminophen ([place] 5/325) 1 tab PO Q4H PRN PRN Reason: Moderate Pain (4-6) Al Hydroxide/Mg Hydroxide (Maalox) 15 ml PO Q4H PRN PRN Reason: Heartburn or Indigestion Artificial Tears (Tears Naturale) 0 drop EA EYE PRN PRN PRN Reason: Dry Eyes Fluoxetine HCl (Prozac) 20 mg PO DAILY [facility] Last Admin: 10/30/17 09:37 Dose: 20 mg Fluticasone Propionate (Flonase Nasal [place]) 0 gm NASAL DAILY [facility] Last Admin: 10/30/17 09:37 Dose: 1 spr Guaifenesin (Robitussin Sf) 200 mg PO Q4H PRN PRN Reason: Cough Hydralazine HCl (Apresoline) 10 mg SLOW IVP Q4H PRN PRN Reason: Systolic BP > 180 Sodium Chloride (Normal Saline 0.9%) 1,000 mls @ 100 mls/hr IV .Q10H [facility] Last Admin: 10/30/17 05:41 Dose: 1,000 mls Iron Sucrose 200 mg/ Sodium (Chloride) 260 mls @ 125 mls/hr IVPB [place] Loperamide HCl (Imodium) 2 mg PO PRN PRN PRN Reason: Diarrhea/Loose Stools Loratadine (Claritin) 10 mg PO DAILYPRN PRN PRN Reason: Sinus Symptoms Magnesium Hydroxide (Milk Of Magnesium) 30 ml PO DAILYPRN PRN PRN Reason: Constipation Mineral Oil/White Petrolatum (Eucerin Cream) 0 gm TOP BIDPRN PRN PRN Reason: Dry Skin Ondansetron HCl (Zofran) 4 mg IVP Q6H PRN PRN Reason: Nausea/Vomiting Ondansetron HCl (Zofran Odt) 4 mg PO Q6H PRN PRN Reason: Nausea/Vomiting Pantoprazole Sodium (Protonix) 40 mg PO DAILY [facility] Phenol (Chloraseptic [place] 180 Ml Bot) 0 ml PO PRN PRN PRN Reason: Sore Throat Ropinirole HCl (Requip) 4 mg PO HS [facility] Last Admin: 10/29/17 19:47 Dose: 4 mg Senna (Senokot) 2 tab PO HSPRN PRN PRN Reason: Constipation Sodium Chloride (Flush - Normal Saline) 10 ml IVF PRN PRN PRN Reason: Saline Flush Sodium Chloride (Flush - Normal Saline) 10 ml IVF Q12HR [facility] Last Admin: 10/30/17 09:37 Dose: Not Given Sodium Chloride (Flush - Normal Saline) 10 ml IVF PRN PRN PRN Reason: Saline Flush Sodium Chloride ([place] Nasal [place] 0.65%) 0 ml EA NARE QIDPRN PRN PRN Reason: Nasal Congestion Zolpidem Tartrate (Ambien) 5 mg PO HSPRN PRN PRN Reason: Insomnia
[2017-10-30] MEDS ORDERED: Iron Sucrose Complex 200 MG in Sodium Chloride 0.9% 250 ML 250 ML IVPB SCH (12:00)
[2017-10-30] MEDS ORDERED: Sodium Ferric Gluconate 250 MG in Sodium Chloride 0.9% 250 ML 250 ML IVPB SCH (13:00)
--- NOTE | 2017-10-30 13:11 | OP ---
DATE OF PROCEDURE: 10/30/2017 PROCEDURE: Esophagogastroduodenoscopy with biopsy and colonoscopy with biopsy. PREOPERATIVE DIAGNOSES: Iron deficiency anemia, chronic diarrhea for the last 3 weeks and hematochez ia. OPERATIVE NOTE: Informed consent was obtained from the patient. She was sedated with total intraven ous anesthesia. The bite block was placed and the endoscope was advanced easily to the second portio n of the duodenum and retroflexion was performed in the stomach. The esophagus was normal. There wa s a 4 cm hiatal hernia present. The stomach had erythematous gastritis around the pylorus, but other connor was normal. Biopsies were obtained from the stomach to rule out H. pylori. The first and secon d portions of the duodenum were normal. Biopsies were taken from the duodenum to rule out celiac dis ease. Patient was turned around. Rectal exam was performed and was normal. The preparation quality was good. The colonoscope was advanced to the terminal ileum. It was somewhat difficult to pass th rough the sigmoid. There was moderate to severe diverticulosis in the sigmoid colon with thickened f olds in this area. The remainder of the colonic mucosa was normal throughout; however, it was very f riable to the touch. The terminal ileum was normal. Retroflexed views in the rectum were normal. IMPRESSION: 1. Mild erythematous gastritis around the pylorus, biopsied to rule out Helicobacter pylori. 2. A 4 cm hiatal hernia. 3. Otherwise normal esophagogastroduodenoscopy. Duodenal biopsies taken to rule out celiac disease. 4. Severe diverticulosis of the sigmoid colon with thickened folds in this area. 5. Otherwise normal colonoscopy to the terminal ileum. The mucosa of the colon was friable througho ut suggestive of a recent infectious colitis. 6. Otherwise normal colonoscopy to the terminal ileum. RECOMMENDATIONS: 1. Await histopathology. 2. Advance diet. 3. If the biopsies are negative, then consider outpatient capsule endoscopy to evaluate for small desean wel source of iron deficiency anemia.
[2017-10-30] MEDS ORDERED: PROPOFOL 200 MG/20 ML VIAL ONE (16:02)
[2017-10-30] MEDS: Ferrous Sulfate 325 MG TAB PO SCH (16:41)
[2017-10-30] MEDS: Acetaminophen 325 MG TAB PO PRN (19:36)
[2017-10-30] MEDS: rOPINIRole HCl 2 MG TAB PO SCH (19:37)
[2017-10-31 04:36] LABS: #Eosinphils 0.1 thou/uL (0.0-0.7); #Lymphocytes 2.3 thou/uL (1.20-3.40); #Monocytes 0.6 thou/uL (0.11-0.59); #Neutrophils 3.3 thou/uL (1.40-6.50); %Basophils 0.1 % (0.0-1.0); %Eosinophils 2.2 % (0.0-10.0); %Monocytes 9.1 % (0.0-10.0); %Neutrophils 52.6 % (42.0-75.0); Hemoglobin 8.3 g/dL (12.0-16.0); Mean Corpuscular HGB CONC 31.1 g/dL (32.0-36.0); Mean Corpuscular Hemoglobin 26.5 pg (27.0-31.0); Mean Corpuscular Volume 85.2 fL (78.0-98.0); Mean Platelet Volume 7.5 fL (7.4-10.4); Platelet Count 395 thou/uL (130-400); RBC Distribution Width 12.5 % (11.5-14.5); Red Blood Cell (RBC) Count 3.12 mill/uL (4.20-5.40); White Blood Cell (WBC) Count 6.4 thou/uL (4.8-10.8)
[2017-10-31 04:51] LABS: Anion Gap 9 mmol/L (10-20); BUN (Urea Nitrogen) 18 mg/dL (9.8-20.1); Calc. Creatinine Clearance 49 mL/min (70-130); Calcium 8.7 mg/dL (7.8-10.44); Carbon Dioxide 26 mmol/L (23-31); Chloride 109 mmol/L (98-107); Estimated GFR-MDRD 34; Glucose 100 mg/dL (80-115); Potassium 4.2 mmol/L (3.5-5.1); Sodium 140 mmol/L (136-145)
[2017-10-31 08:02] VITALS: BP 128/66; TEMP 97.9
[2017-10-31] MEDS: Ferrous Sulfate 325 MG TAB PO SCH (08:17)
[2017-10-31] MEDS: FLUoxetine HCl 20 MG CAP PO SCH (08:17)
[2017-10-31] MEDS: Fluticasone Propionate Nasal Spray 16 gm Bottle NASAL SCH (08:17)
--- NOTE | 2017-10-31 10:56 | PDOC.PN ---
- Subjective Encounter Start Date: 10/31/17 Encounter Start Time: 09:45 Patient seen and examined. No new complaints. No overnight events - Objective Resuscitation Status: Resuscitation Status FULL:Full Resuscitation MAR Reviewed: Yes Vital Signs & Weight: Vital Signs (12 hours) Temp Pulse Resp BP Pulse Ox 10/31/17 08:00 97.9 F 73 18 128/66 96 10/31/17 03:21 98.5 F 62 18 111/54 L 95 10/30/17 23:26 97.9 F 65 16 107/66 95 Weight Weight 186 lb 12.8 oz I&O: 10/30/17 10/31/17 11/01/17 06:59 06:59 06:59 Intake Total 4400 480 480 Balance 4400 480 480 Result Diagrams: 10/31/17 04:02 10/31/17 04:02 Phys Exam - Physical Examination Constitutional: NAD HEENT: PERRLA, moist MMs, sclera anicteric Neck: no JVD, supple Respiratory: no wheezing, no rales, no rhonchi Cardiovascular: RRR, no significant murmur, no rub Gastrointestinal: soft, non-tender, no distention, positive bowel sounds Musculoskeletal: no edema, pulses present Neurological: non-focal, normal sensation, moves all 4 limbs Psychiatric: normal affect, A&O x 3 Skin: no rash, normal turgor Dx/Plan (1) Acute kidney failure Status: Acute (2) Anemia due to acute blood loss Code(s): D62 - ACUTE POSTHEMORRHAGIC ANEMIA Status: Acute (3) Diarrhea Code(s): R19.7 - DIARRHEA, UNSPECIFIED Status: Acute (4) GI bleed Code(s): K92.2 - GASTROINTESTINAL HEMORRHAGE, UNSPECIFIED Status: Acute (5) Anxiety and depression Code(s): F41.9 - ANXIETY DISORDER, UNSPECIFIED; F32.9 - MAJOR DEPRESSIVE DISORDER, SINGLE EPISODE, UNSPECIFIED Status: Chronic (6) GERD (gastroesophageal reflux disease) Code(s): K21.9 - GASTRO-ESOPHAGEAL REFLUX DISEASE WITHOUT ESOPHAGITIS Status: Chronic (7) Hypertension Code(s): I10 - ESSENTIAL (PRIMARY) HYPERTENSION Status: Chronic (8) Obesity (BMI 30.0-34.9) Code(s): E66.9 - OBESITY, UNSPECIFIED Status: Chronic - Plan cont current plan of care, plan discussed w/ family * medication reviewed as below * symptomatic treatment * see discharge uriel. Review of Systems - Review of Systems ENT: negative: Ear Pain, Ear Discharge, Nose Pain, Nose Discharge, Nose Congestion, Mouth Pain, Mouth Swelling, Throat Pain, Throat Swelling, Other Respiratory: negative: Cough, Dry, Shortness of Breath, Hemoptysis, SOB with Excertion, Pleuritic Pain, Sputum, Wheezing Cardiovascular: negative: chest pain, palpitations, orthopnea, paroxysmal nocturnal dyspnea, edema, light headedness, other Gastrointestinal: negative: Nausea, Vomiting, Abdominal Pain, Diarrhea, Constipation, Melena, Hematochezia, Other Genitourinary: negative: Dysuria, Frequency, Incontinence, Hematuria, Retention , Other Musculoskeletal: negative: Neck Pain, Shoulder Pain, Arm Pain, Back Pain, Hand Pain, Leg Pain, Foot Pain, Other - Medications/Allergies Allergies/Adverse Reactions: Allergies Allergy/AdvReac Type Severity Reaction Status Date / Time No Known Allergies Allergy Verified 03/02/17 10:10 Medications: Current Medications Acetaminophen (Tylenol) 650 mg PO Q4H PRN PRN Reason: Headache/Fever or Pain Last Admin: 10/30/17 19:36 Dose: 650 mg Acetaminophen (Tylenol) 650 mg [place] Q4H PRN PRN Reason: Headache/Fever or Pain Hydrocodone Bitart/Acetaminophen ([place] 5/325) 1 tab PO Q4H PRN PRN Reason: Moderate Pain (4-6) Al Hydroxide/Mg Hydroxide (Maalox) 15 ml PO Q4H PRN PRN Reason: Heartburn or Indigestion Artificial Tears (Tears Naturale) 0 drop EA EYE PRN PRN PRN Reason: Dry Eyes Ferrous Sulfate (Feosol) 325 mg PO BID-[facility] Last Admin: 10/31/17 08:17 Dose: 325 mg Fluoxetine HCl (Prozac) 20 mg PO DAILY [facility] Last Admin: 10/31/17 08:17 Dose: 20 mg Fluticasone Propionate (Flonase Nasal [place]) 0 gm NASAL DAILY [facility] Last Admin: 10/31/17 08:17 Dose: 1 spr Guaifenesin (Robitussin Sf) 200 mg PO Q4H PRN PRN Reason: Cough Hydralazine HCl (Apresoline) 10 mg SLOW IVP Q4H PRN PRN Reason: Systolic BP > 180 Loperamide HCl (Imodium) 2 mg PO PRN PRN PRN Reason: Diarrhea/Loose Stools Loratadine (Claritin) 10 mg PO DAILYPRN PRN PRN Reason: Sinus Symptoms Magnesium Hydroxide (Milk Of Magnesium) 30 ml PO DAILYPRN PRN PRN Reason: Constipation Mineral Oil/White Petrolatum (Eucerin Cream) 0 gm TOP BIDPRN PRN PRN Reason: Dry Skin Ondansetron HCl (Zofran) 4 mg IVP Q6H PRN PRN Reason: Nausea/Vomiting Ondansetron HCl (Zofran Odt) 4 mg PO Q6H PRN PRN Reason: Nausea/Vomiting Pantoprazole Sodium (Protonix) 40 mg PO DAILY [facility] Last Admin: 10/31/17 08:17 Dose: 40 mg Phenol (Chloraseptic [place] 180 Ml Bot) 0 ml PO PRN PRN PRN Reason: Sore Throat Ropinirole HCl (Requip) 4 mg PO HS [facility] Last Admin: 10/30/17 19:37 Dose: 4 mg Senna (Senokot) 2 tab PO HSPRN PRN PRN Reason: Constipation Sodium Chloride (Flush - Normal Saline) 10 ml IVF PRN PRN PRN Reason: Saline Flush Sodium Chloride (Flush - Normal Saline) 10 ml IVF Q12HR [facility] Last Admin: 10/31/17 08:18 Dose: Not Given Sodium Chloride (Flush - Normal Saline) 10 ml IVF PRN PRN PRN Reason: Saline Flush Sodium Chloride ([place] Nasal [place] 0.65%) 0 ml EA NARE QIDPRN PRN PRN Reason: Nasal Congestion Zolpidem Tartrate (Ambien) 5 mg PO HSPRN PRN PRN Reason: Insomnia
--- NOTE | 2017-10-31 12:26 | DIS ---
PRIMARY CARE PHYSICIAN: LUCILA Castañeda DATE OF ADMISSION: 10/29/2017 DATE OF DISCHARGE: 10/31/2017 DISCHARGE DISPOSITION: Home. PRIMARY DISCHARGE DIAGNOSES: 1. Acute kidney failure, improved. 2. Iron deficiency anemia due to blood loss. 3. Diarrhea. 4. Gastrointestinal bleed. SECONDARY DISCHARGE DIAGNOSES: Obesity with BMI 31, hypertension, gastroesophageal reflux disease, anxiety, and depression. PRIMARY PROCEDURE/OPERATION: EGD and colonoscopy was performed by Dr. Leiva. EGD showed mild erythematous gastritis, hiatal hernia. Colonoscopy showed diverticulosis. Pathology obtained from colon and duodenum. Pathology report is pending. SIGNIFICANT LABORATORY DATA: WBC 6.4, hemoglobin 8.3, platelets 395. Sodium 140, potassium 4.2, BUN 18, creatinine 1.52, calcium 8.7, ferritin 39.38. LFT normal. Urinalysis normal. Stool for infection workup negative. DISCHARGE MEDICATIONS: Aspirin 81 mg p.o. daily, atenolol with chlorthalidone one tablet p.o. daily, Nancy 180 mg p.o. daily, Prozac 20 mg p.o. daily, Flonase nasal spray daily, lisinopril 10 mg p.o. daily, Protonix 40 mg p.o. daily, ropinirole 4 mg p.o. at bedtime, ferrous sulfate 325 mg p.o. b.i.d., and Protonix 40 mg p.o. daily. CONTRAINDICATIONS: None. CODE STATUS: FULL CODE. INPATIENT CONSULTANTS: Dr. Leiva was consulted and he did EGD and colonoscopy. TEST RESULTS PENDING ON DISCHARGE: Pathology report from gastric colon and duodenum. DISCHARGE PLAN: Post hospital, the patient will follow up with primary care physician in 1 week. The patient will follow up with Dr. Leiva as instructed. HOSPITAL COURSE: A 67-year-old female, who has a 2-week history of diarrhea as well as patient was having some intermittent black tarry stool. She had anemia and she was found to be an iron deficiency anemia. The patient was admitted to the hospital. Dr. Arellano admitted this patient, please see his H&P for further detail. The patient had stool for infection workup, which was negative. She had acute kidney failure that was improved with IV fluid while in hospital, we did EGD and colonoscopy during this admission and found with gastritis and hiatal hernia. Colonoscopy showed diverticulosis and biopsy was obtained. At this point, we are waiting for pathology report. We are suspecting microscopic colitis. The patient's hemoglobin remained stable. She did not require any blood transfusion. We gave her iron infusion while in hospital. Patient will follow up with Dr. Leiva for pathology report. Rest of medication, she will continue as per previous. We prescribed Protonix upon discharge, ferrous sulfate was also prescribed. The patient is ambulatory, tolerating p.o. well, and she does not have any new symptoms. At this point, patient is stable for discharge. The patient is seen and examined at bedside today. Please see my progress note from today for further detail. MTDD
--- NOTE | 2017-10-31 12:39 | PRG ---
DATE OF SERVICE: 10/31/2017 SUBJECTIVE: Ms. Reeves has had a couple episodes of diarrhea, but this has improved overall. She has no abdominal pain, no nausea or vomiting. Tolerated her diet well. OBJECTIVE: ABDOMEN: Soft and nontender, nondistended. Bowel sounds are present. IMPRESSION: 1. Diarrhea for the last 3 weeks. There was friability to the colonic mucosa suggestive of a recent infectious colitis. There was no apparent inflammatory bowel disease. Biopsies were obtained from the colon to rule out microscopic colitis. Duodenal biopsies were taken to rule out celiac disease. 2. Mild gastritis. Biopsies taken to rule out H. pylori are pending. 3. Iron deficiency anemia. RECOMMENDATIONS: 1. If the biopsies are negative, then the next step will be capsule endoscopy of the small intestine to evaluate for a source for the iron deficiency anemia. 2. Follow up in GI Clinic in 3-4 weeks. The patient has my office number to call and schedule this. 3. She will discharge home today.
== END 2017-10-31 12:12 | disposition home or self-care (01) | DRG 378 ==
LOC: ERS 14:35 → 2SW 21:59 → OBSVTOIN 10-29 06:39 → T4-A 10-29 08:05
PROVIDERS: ADMIT Internal Medicine; ATTEND Internal Medicine
PROC: 0DD98ZX Extraction of Duodenum, Via Natural or Artificial Opening Endoscopic, Diagnostic (ICD-10-PCS; principal; 2017-10-30)
PROC: 0DBG8ZX Excision of Left Large Intestine, Via Natural or Artificial Opening Endoscopic, Diagnostic (ICD-10-PCS; 2017-10-30)
PROC: 0DBF8ZX Excision of Right Large Intestine, Via Natural or Artificial Opening Endoscopic, Diagnostic (ICD-10-PCS; 2017-10-30)
DX: K92.2 Gastrointestinal hemorrhage, unspecified (principal); N17.9 Acute kidney failure, unspecified; I12.9 Hypertensive chronic kidney disease with stage 1 through stage 4 chronic kidney disease, or unspecified chronic kidney disease; N18.9 Chronic kidney disease, unspecified; E86.0 Dehydration; E66.9 Obesity, unspecified; Z68.31 Body mass index [BMI] 31.0-31.9, adult; D50.0 Iron deficiency anemia secondary to blood loss (chronic)
CPT/HCPCS: 36415; 74176; 80048; 80053; 80069; 81003; 82274; 82607; 82728; 82746; 83540; 83550; 85025; 87045; 87046; 87324; 87449; 87899; 88305; 88312; 96360; 96361; A4216; C9113; J1756; J2704; J2916; J7050

== ENCOUNTER 2017-11-05 15:06 | Emergency (ER) | payer MEDICARE | END 2017-11-05 18:16 | disposition home or self-care (01) | LOC: ERS 15:06 | DX: K92.1 Melena (principal); I10 Essential (primary) hypertension; F32.9 Major depressive disorder, single episode, unspecified; Z79.899 Other long term (current) drug therapy; Z79.82 Long term (current) use of aspirin | CPT/HCPCS: 96360 ==

== ENCOUNTER 2018-01-27 08:39 | Outpatient (CLI) | payer MEDICARE ==
--- NOTE | 2018-01-27 10:48 | BD ---
BONE DENSITOMETRY USING DEXA: HISTORY: Postmenopausal screening for osteoporosis. LUMBAR SPINE BMD (g/cm2) T-SCORE Z-SCORE L1 0.799 -1.7 -0.1 L2 0.963 -0.6 1.2 L3 0.943 -1.3 0.6 L4 0.805 -2.3 -0.4 TOTAL 0.873 -1.6 0.2 NECK 0.692 -1.4 0.1 TOTAL 0.942 0. 1.3 The 10-year fracture risk for a major osteoporotic fracture is 8.7% and for a hip fracture 0.9%. IMPRESSION: Osteopenia. POS: OFF
== END 2018-01-27 08:40 | disposition home or self-care (01) ==
LOC: BICMAMMO 08:39
PROVIDERS: ATTEND Nurse Practitioner Family
DX: Z12.31 Encounter for screening mammogram for malignant neoplasm of breast (principal); Z78.0 Asymptomatic menopausal state; M85.88 Other specified disorders of bone density and structure, other site
CPT/HCPCS: 77063; 77067; 77080

== ENCOUNTER 2018-03-07 13:33 | Emergency (ER) | payer MEDICARE ==
[~2018-03-07 13:33] MED LIST: ISOVUE-370 76%-LOCM 1 ML ONE
[2018-03-07 14:05] LABS: #Eosinphils 0.1 thou/uL (0.0-0.7); #Lymphocytes 3.2 thou/uL (1.20-3.40); #Monocytes 0.9 thou/uL (0.11-0.59); #Neutrophils 11.6 thou/uL (1.40-6.50); %Basophils 0.1 % (0.0-1.0); %Eosinophils 0.9 % (0.0-10.0); %Lymphocytes 20.1 % (21.0-51.0); %Monocytes 5.9 % (0.0-10.0); Hemoglobin 14.8 g/dL (12.0-16.0); Mean Corpuscular HGB CONC 31.1 g/dL (32.0-36.0); Mean Corpuscular Hemoglobin 27.5 pg (27.0-31.0); Mean Corpuscular Volume 88.5 fL (78.0-98.0); Platelet Count 347 thou/uL (130-400); RBC Distribution Width 12.4 % (11.5-14.5); Red Blood Cell (RBC) Count 5.39 mill/uL (4.20-5.40); White Blood Cell (WBC) Count 15.8 thou/uL (4.8-10.8)
[2018-03-07] MEDS ORDERED: Ondansetron PF 4 MG/2 ML Vial ONE (15:19)
[2018-03-07 15:30] LABS: ALT (SGPT) 21 U/L (8-55); AST (SGOT) 22 U/L (5-34); Albumin 4.2 g/dL (3.4-4.8); Alkaline Phosphatase 105 U/L (40-150); Anion Gap 21 mmol/L (10-20); BUN (Urea Nitrogen) 27 mg/dL (9.8-20.1); Bilirubin, Total 1.2 mg/dL (0.2-1.2); Calc. Creatinine Clearance 0 mL/min (70-130); Calcium 10.1 mg/dL (7.8-10.44); Carbon Dioxide 27 mmol/L (23-31); Chloride 96 mmol/L (98-107); Estimated GFR-MDRD 37; Globulin 4.3 g/dL (2.4-3.5); Glucose 101 mg/dL (80-115); Lipase 14 U/L (8-78); Protein, Total 8.5 g/dL (6.0-8.3); Sodium 141 mmol/L (136-145)
[2018-03-07] MEDS ORDERED: Morphine 4 MG/ML VIAL ONE (15:37)
[2018-03-07] MEDS ORDERED: Potassium Chloride 20 MEQ TAB ONE (15:38)
[2018-03-07] MEDS ORDERED: Ciprofloxacin 500 MG TAB ONE (15:38)
[2018-03-07] MEDS ORDERED: metroNIDAZOLE 500 MG/100 ML BAG ONE (15:38)
--- NOTE | 2018-03-07 18:03 | CT ---
ABDOMEN AND PELVIC CT SCAN WITH IV CONTRAST: 03/07/18 HISTORY: Left lower quadrant pain which began on Tuesday with nausea, vomiting, diarrhea, fever and chills. Daya or history of diverticulitis. FINDINGS: The visualized lower lung zones are clear. Moderate sized hiatal hernia. The visualized liver, gallbl adder, pancreas, spleen, and adrenal glands are unremarkable. No renal calculus are obstruction. S mall bilateral renal hypodensities too small to definitively characterize but statistically small cys ts. Normal appearing appendix. Focal area of abnormal wall thickening in the sigmoid colon over the c ourse of approximately 5 cm with some pericolonic fat stranding evidence for acute diverticulitis. Th ere is some minimal free fluid in the pelvis. Postop hysterectomy. No evidence for extraluminal gas o r drainable abscess. IMPRESSION: Prominent marked area of abnormal wall thickening in the sigmoid colon with associated diverticula wi th some pericolonic fat stranding and minimal free fluid in the pelvis consistent with acute divertic ulitis. Given the severe wall thickening, consideration for followup colonoscopy after resolution of the acute diverticulitis is recommended for further assessment to exclude underlying associated neopl astic change. In addition, in the mid left colon, there is some pericolonic fat stranding with some a ssociated diverticula which could represent a second focus of acute diverticulitis. Again, no evidenc e of drainable abscess or extraluminal gas. IMPRESSION: 1. Area in the sigmoid colon of marked colonic wall thickening and pericolonic fat stranding, ev idence for acute diverticulitis, given the severe wall thickening, consideration for followup colonos copy to exclude underlying neoplasm after the acute diverticulitis episode has resolved is recommende d. Small focus of minimal pericolonic fat stranding in the mid left colon in a separate location also possibly a small focus of acute diverticulitis without evidence for drainable abscess or extralumina l gas. Normal appearing appendix. Multiple small low attenuation foci within the kidneys, too small t o characterize. Moderate sized hiatal hernia. Other findings as above. POS: [facility]
== END 2018-03-07 17:55 | disposition home or self-care (01) ==
LOC: ERS 13:33
DX: K57.32 Diverticulitis of large intestine without perforation or abscess without bleeding (principal); I10 Essential (primary) hypertension; F32.9 Major depressive disorder, single episode, unspecified; Z79.82 Long term (current) use of aspirin; Z79.899 Other long term (current) drug therapy
CPT/HCPCS: 36415; 74177; 80053; 83690; 85025; 96365; 96374; 96375; J2270; J2405; Q9966

== ENCOUNTER 2018-03-29 10:45 | Outpatient (CLI) | payer MEDICARE ==
--- NOTE | 2018-03-29 12:05 | RAD ---
THREE VIEWS CHEST: Date: 03-29-18 Provided Clinical History: Cough. FINDINGS: Comparison 03-22-18. Cardiac and mediastinal silhouette is unchanged in appearance. Lungs appear clear. No pleural fluid o r pneumothorax apparent. IMPRESSION: No evidence for acute cardiopulmonary process. POS: [facility]
== END 2018-03-29 10:46 | disposition home or self-care (01) ==
LOC: RAD-FRANK 10:45
PROVIDERS: ATTEND Nurse Practitioner Family
DX: Z20.89 Contact with and (suspected) exposure to other communicable diseases (principal); R05 Cough
CPT/HCPCS: 71046

== ENCOUNTER 2018-05-05 14:17 | Outpatient (CLI) | payer MEDICARE ==
[2018-05-05] MEDS ORDERED: ISOVUE-370 76%-LOCM 1 ML ONE (15:29)
--- NOTE | 2018-05-05 15:35 | CT ---
CT OF CHEST PERFORMED WITHH CONTRAST ENHANCEMENT: HISTORY: Wheezing and cough. FINDINGS: The lungs are clear of any infiltrative process. There is some minimal ground-glass density in the l andreas bases probably related to some dependent atelectasis. There are no pleural effusions. Calcified granuloma is seen within the right lung. There is no evidence of any bronchiectatic-type change. N o pleural effusions. The thoracic aorta is normal in caliber. No significant mediastinal, hilar, or axillary lymphadenopa thy. The visualized liver parenchyma shows a suggestion of some possible fatty change. Right and left adr enal glands are normal in appearance. There is a hypodensity involving the upper pole of the right k idney. It has borderline CT Hounsfield unit numbers but is statistically most likely a cyst. Anothe r small exophytic hypodense lesion is seen along the lateral cortex of the kidney on the right and al so a density in the lower pole region. Ultrasound may be helpful in confirming these densities as cy sts. There is also one within the left kidney. A large hiatal hernia is noted. IMPRESSION: 1. No evidence of any acute infiltrative process. 2. Hypodensities within the kidneys, statistically most likely cysts. 3. Large hiatal hernia. POS: [facility]
== END 2018-05-05 14:18 | disposition home or self-care (01) ==
LOC: BICCT 14:17
PROVIDERS: ATTEND Nurse Practitioner Family
DX: R06.2 Wheezing (principal); R05 Cough; Z20.89 Contact with and (suspected) exposure to other communicable diseases; K44.9 Diaphragmatic hernia without obstruction or gangrene
CPT/HCPCS: 71260; 82565; Q9966

== ENCOUNTER 2018-06-19 13:59 | Outpatient (CLI) | payer MEDICARE ==
--- NOTE | 2018-06-19 14:45 | RAD ---
CHEST TWO VIEWS: HISTORY: Cough. COMPARISON: 03/29/2018 FINDINGS: Moderate sized hiatal hernia. Heart size is within normal limits. Lungs are clear. IMPRESSION: 1. No significant acute intrathoracic disease. 2. Evidence for small to moderate hiatal hernia. 3. Atherosclerosis of the aorta. 4. No evidence for pneumonia. POS: [facility]
== END 2018-06-19 14:00 | disposition home or self-care (01) ==
LOC: RAD-FRANK 13:59
PROVIDERS: ATTEND Nurse Practitioner Family
DX: R05 Cough (principal); K44.9 Diaphragmatic hernia without obstruction or gangrene; I70.0 Atherosclerosis of aorta; Z87.01 Personal history of pneumonia (recurrent)
CPT/HCPCS: 71046

== ENCOUNTER 2018-07-11 19:30 | Outpatient (CLI) | payer MEDICARE | END 2018-07-11 19:31 | disposition home or self-care (01) | LOC: SLEEPLAB 19:30 | PROVIDERS: ATTEND Nurse Practitioner Family | DX: G47.33 Obstructive sleep apnea (adult) (pediatric) (principal); E66.9 Obesity, unspecified; K21.9 Gastro-esophageal reflux disease without esophagitis; I10 Essential (primary) hypertension; R06.83 Snoring; F32.9 Major depressive disorder, single episode, unspecified | CPT/HCPCS: 95811 ==

== ENCOUNTER 2019-01-08 14:01 | Outpatient (CLI) | payer MEDICARE ==
[2019-01-08] MEDS ORDERED: Magnevist 469MG/ML 20 ML VIAL ONE (15:23)
--- NOTE | 2019-01-08 16:01 | MRI ---
MRI Lumbar Spine with and without IV contrast: HISTORY: Low back pain with pain radiating to left hip and down left leg. Left leg weakness. Displacement of l umbar disc. History of prior lumbar surgery. COMPARISON: None FINDINGS: Multiple increased T2-weighted signal intensity lesions are seen in the visualized kidneys bilaterall y without obvious enhancement seen on the postcontrast images suggesting multiple renal cysts. Remainder of the retroperitoneal structures demonstrate a grossly normal appearance. Conus medullaris is normal in morphology and terminates at the T12-L1 level. There is mild nonspecific heterogeneity of the bone marrow with endplate degenerative changes at the L5-S1 level and to a lesser extent L1-2 level. L1-2: There is a minimal disc osteophyte complex and facet degenerative changes. Central spinal canal and neural foramina are patent. L2-3: Facet degenerative changes and mild ligamentous thickening are present. Central spinal canal an d neural foramina are patent. L3-4: There is a mild broad-based disc osteophyte complex with facet hypertrophic changes and mild li gamentous thickening. Findings result in mild narrowing of the central spinal canal with mild left and [id number] right-sided neural foraminal narrowing. L4-5: There is a broad-based disc osteophyte complex with facet hypertrophic changes present. There i s no significant narrowing of the central spinal canal, but there is mild to moderate bilateral neural foraminal narrowing. L5-S1: There is loss of intervertebral disc height. Laminectomy defect is seen at this level. There i s enhancement posterior to the thecal sac at the level of the L5 vertebral body with decreased T1 weighted signal intensity seen in the left aspect of the central spinal canal adjacent to the thecal sac to the left of midline. Post contrast images demonstrate enhancement surrounding the traversing left S1 nerve root, and this abnormal signal intensity and enhancement is likely related to scar tiss ue from prior postsurgical changes. Prominent facet hypertrophic changes are also seen on the left, and there is moderate left-sided neural foraminal narrowing. A left paracentral disc osteophyte compl ex is present at this level. There is slight effacement of the left aspect of the thecal sac. The right neural foramen is patent.. IMPRESSION: 1. Postsurgical changes at the L5-S1 level with evidence of prior laminectomy defect. Enhancing soft tissue signal intensity is seen within the central canal to the left of midline surrounding the traversing left S1 nerve root and adjacent to the thecal sac as well as enhancement posterior to the level of the thecal sac at the level of the L5 vertebral body. The enhancing soft tissue signal intensity is likely related to scar tissue. In addition, there is a left paracentral disc osteophyte complex and prominent facet hypertrophic changes which results in moderate left-sided neural foraminal narrowing. 2. Multilevel degenerative changes throughout the remainder of the lumbar spine. 3. Bilateral renal cysts.
== END 2019-01-08 14:02 | disposition home or self-care (01) ==
LOC: BICMRI 14:01
PROVIDERS: ATTEND Specialist
DX: M51.16 Intervertebral disc disorders with radiculopathy, lumbar region (principal); M96.1 Postlaminectomy syndrome, not elsewhere classified; N28.1 Cyst of kidney, acquired; M47.26 Other spondylosis with radiculopathy, lumbar region; M48.07 Spinal stenosis, lumbosacral region; M25.78 Osteophyte, vertebrae; Z98.890 Other specified postprocedural states
CPT/HCPCS: 72158; 82565; A9579

== ENCOUNTER 2019-09-11 11:19 | Outpatient (CLI) | payer MEDICARE ==
--- NOTE | 2019-09-11 12:35 | MMO ---
Bilateral MAMMO Bilat Screen [facility]. CLINICAL HISTORY: Patient is 69 years old and is seen for screening. The patient has no family history of breast cancer. The patient has no personal history of cancer. VIEWS: The views performed were: bilateral craniocaudal with tomosynthesis and bilateral mediolateral oblique with tomosynthesis. FILMS COMPARED: The present examination has been compared to prior imaging studies performed at [facility] on 01/27/2018. This study has been interpreted with the assistance of computer-aided detection. MAMMOGRAM FINDINGS: There are scattered fibroglandular densities. Finding 1: There are stable benign appearing calcifications seen in both breasts. Finding 2: There are two stable masses seen in the left breast. There are no suspicious masses, suspicious calcifications, or new areas of architectural distortion. IMPRESSION: THERE IS NO MAMMOGRAPHIC EVIDENCE OF MALIGNANCY. A ROUTINE FOLLOW-UP MAMMOGRAM IN 1 YEAR IS RECOMMENDED. THE RESULTS OF THIS EXAM WERE SENT TO THE PATIENT. ACR BI-RADS Category 2 - Benign finding MAMMOGRAPHY NOTE: 1. A negative mammogram report should not delay a biopsy if a dominant of clinically suspicious mass is present. 2. Approximately 10% to 15% of breast cancers are not detected by mammography. 3. Adenosis and dense breasts may obscure an underlying neoplasm. Reported by: WINNIE KHAN MD Electonically Signed: [id number]
== END 2019-09-11 11:20 | disposition home or self-care (01) ==
LOC: BICMAMMO 11:19
PROVIDERS: ATTEND Nurse Practitioner Family
DX: Z12.31 Encounter for screening mammogram for malignant neoplasm of breast (principal)
CPT/HCPCS: 77063; 77067

== ENCOUNTER → 2021-07-02 | Day surgery (SDC) | payer MEDICARE | END | disposition home or self-care (01) | LOC: SDC 11:32 | PROVIDERS: ATTEND Physician Assistant Medical | DX: K21.9 Gastro-esophageal reflux disease without esophagitis (principal); K44.9 Diaphragmatic hernia without obstruction or gangrene; Z91.041 Radiographic dye allergy status ==